=== PATIENT | female | born 1955 | race Caucasian/White ===

== ENCOUNTER → 2018-09-01 | Outpatient (CLI) | payer OTHER ==
[~2018-09-01] MED LIST: CYMBALTA60 MG PO; FLEXERIL PO; LYRICA100 MG PO; MOBIC15 MG PO; NEURONTIN 300300 M1 PO; OXYCONTIN CR 1010 M1 PO; TIZANIDINE HCL4 M1 PO
== END ==
LOC: M.RAD 15:35
DX: M81.0 Age-related osteoporosis without current pathological fracture (principal); Z78.0 Asymptomatic menopausal state

== ENCOUNTER 2019-06-30 16:10 | Emergency (ER) | payer OTHER ==
[~2019-06-30] VITALS: Ht 165.1 cm; Wt 56.7 kg
[2019-06-30] MEDS ORDERED: NORVASC 2.5 MG2.5 M1 PO (16:33)
[2019-06-30] MEDS ORDERED: PERCOCET PO (17:04)
[2019-06-30] MEDS ORDERED: ULTRAM 50MG TAB50 MG PO (17:10)
[2019-06-30 18:16] VITALS: BP 144/83
== END 2019-06-30 18:16 | disposition home or self-care (01) ==
LOC: M.ERS 16:10
DX: S52.592A Other fractures of lower end of left radius, initial encounter for closed fracture (principal); Z90.711 Acquired absence of uterus with remaining cervical stump; Z88.1 Allergy status to other antibiotic agents; Z88.5 Allergy status to narcotic agent; W01.0XXA Fall on same level from slipping, tripping and stumbling without subsequent striking against object, initial encounter; Y93.89 Activity, other specified; Y92.89 Other specified places as the place of occurrence of the external cause; Y99.8 Other external cause status

== ENCOUNTER → 2020-12-27 | Outpatient (CLI) | payer OTHER ==
[~2020-12-27] MED LIST changes: +NORVASC 2.5 MG2.5 M1 PO; +PERCOCET PO; +ULTRAM 50MG TAB50 MG PO
== END ==
LOC: M.RAD 09:31
PROVIDERS: ATTEND Internal Medicine
DX: Z12.31 Encounter for screening mammogram for malignant neoplasm of breast (principal); N64.89 Other specified disorders of breast